=== PATIENT | female | born 1995 | race Two or more races ===

== ENCOUNTER 2019-08-26 09:27 | Emergency (ER) | payer OTHER ==
[~2019-08-26] VITALS: Ht 170.2 cm; Wt 64.0 kg
[2019-08-26 09:31] VITALS: BP 123/78; Ht 170.2 cm; Wt 64.0 kg
== END 2019-08-26 12:50 | disposition home or self-care (01) ==
LOC: ED 09:27
DX: S93.402A Sprain of unspecified ligament of left ankle, initial encounter (principal); G43.909 Migraine, unspecified, not intractable, without status migrainosus; X58.XXXA Exposure to other specified factors, initial encounter; Y93.89 Activity, other specified; Y92.89 Other specified places as the place of occurrence of the external cause; Y99.8 Other external cause status
CPT/HCPCS: Q0092